=== PATIENT | female | born 1985 | race American Indian/Alaskan Native ===

== ENCOUNTER 2021-01-27 13:30 | Emergency (ER) | payer SELFPAY ==
[2021-01-27] MEDS ORDERED: LIDOCAINE (1%) 10 MG/1 ML VIAL 20 ML MDV INFILTRATI ONE (14:30)
--- NOTE | 2021-01-27 14:32 | Emergency Department Report ---
ED General Adult HPI - General Chief complaint: Skin/Abscess/Foreign Body Stated complaint: ABSCESS UNDER THE LEFT ARM Time Seen by Provider: 01/27/21 14:29 Source: patient Mode of arrival: Ambulatory Limitations: No Limitations - History of Present Illness Initial comments: 35 yo AA F pt presents with complaints of left axillary abscess x 4 days. She d enies hx of recurrent abscesses or HS. No fever/chills/sweats or difficulty moving her arm per pt. She rates her pain as a 10/10 in severity. Pt also reports she is newly and estimates she is about 5 weeks/ - Related Data Previous Rx's Medication Instructions Recorded Last Taken Type Acetaminophen [Non-Aspirin Extra 1,000 mg PO Q6H PRN #30 tablet 01/27/21 Unknown Rx Strength] Clindamycin [Clindamycin CAP] 300 mg PO Q6H 28 Days #40 capsule 01/27/21 Unknown Rx Mupirocin [Bactroban 2% OINT] 1 applic TP TID 10 Days #1 tube 01/27/21 Unknown Rx Allergies Allergy/AdvReac Type Severity Reaction Status Date / Time No Known Allergies Allergy Unverified 02/01/20 12:45 ED Review of Systems ROS: Stated complaint: ABSCESS UNDER THE LEFT ARM Other details as noted in HPI ED Past Medical Hx - Past Medical History Previous Medical History?: No - Surgical History Past Surgical History?: Yes Additional Surgical History: C section - Social History Smoking Status: Never Smoker Substance Use Type: None - Medications Home Medications: Home Medications Medication Instructions Recorded Confirmed Last Taken Type Acetaminophen [Non-Aspirin Extra 1,000 mg PO Q6H PRN #30 tablet 01/27/21 Unknown Rx Strength] Clindamycin [Clindamycin CAP] 300 mg PO Q6H 28 Days #40 capsule 01/27/21 Unknown Rx Mupirocin [Bactroban 2% OINT] 1 applic TP TID 10 Days #1 tube 01/27/21 Unknown Rx ED Physical Exam - General Limitations: No Limitations ED Course Vital Signs 01/27/21 14:31 Temperature 98.3 F Pulse Rate 80 Respiratory 20 Rate Blood Pressure 116/61 O2 Sat by Pulse 100 Oximetry - I & D Left Arm Type of Procedure: Simple Site: left axilla Blade Size: 11 I & D Procedure: betadine prep, gauze wick placed Progress: Minimal bleeding occurred. 10 cc of lidocaine 1% without epi used. Moderate purulent drainage obtained. Sample sent to lab for culture patient tolerated procedure well without any immediate complications ED Medical Decision Making - Medical Decision Making 35 yo AA F pt presents with complaints of left axillary abscess x 4 days. She denies hx of recurrent abscesses or HS. No fever/chills/sweats or difficulty moving her arm per pt. She rates her pain as a 10/10 in severity. Pt also reports she is newly and estimates she is about 5 weeks Incision and drainage performed successfully without any immediate complications. Discussed wound care and strict return precautions in detail with patient who verbalizes understanding. Patient to follow-up with her INTERVENTION ANALYST concerning her new . Patient to return to ED in 2 days for packing removal Critical care attestation.: If time is entered above; I have spent that time in minutes in the direct care of this critically ill patient, excluding procedure time. ED Disposition Clinical Impression: Abscess of axillary fold Disposition: DC-01 TO HOME OR SELFCARE Is pt being admited?: No Condition: Stable Instructions: Incision and Drainage, Care After Prescriptions: Mupirocin [Bactroban 2% OINT] 1 applic TP TID 10 Days #1 tube Clindamycin [Clindamycin CAP] 300 mg PO Q6H 28 Days #40 capsule Acetaminophen [Non-Aspirin Extra Strength] 1,000 mg PO Q6H PRN #30 tablet PRN Reason: pain Referrals: PRIMARY CARE,MD [Primary Care Provider] - 2-3 Days Forms: Work/School Release Form(ED)
[2021-01-27 14:35] VITALS: BP 116/61
== END 2021-01-27 15:45 | disposition home or self-care (01) ==
LOC: ED 13:30
DX: L02.412 Cutaneous abscess of left axilla (principal); Z98.890 Other specified postprocedural states
CPT/HCPCS: 87076; 87116; 87186; 99283

== ENCOUNTER 2021-07-20 12:30 | Emergency (ER) | payer SELFPAY ==
[2021-07-20 12:55] VITALS: BP 116/63
--- NOTE | 2021-07-20 13:12 | Emergency Department Report ---
ED ENT HPI - General Chief complaint: Dental/Oral Stated complaint: SWOLLEN FACE (L) Time Seen by Provider: 07/20/21 12:57 Source: patient Mode of arrival: Ambulatory Limitations: No Limitations - History of Present Illness Initial comments: 35-year-old female presents to the ER today with complaints of dental pain to left lower jaw and left jaw swelling. She states that symptoms started gradually yesterday and this morning when she woke up she noticed increased swelling to left lower jaw. She does admits that she has 2 bad teeth in that left lower jaw and she has never been to the dentist since he was a teenager because she is terrified a dentist. She states that she has been taking Goody powder without much relief. She reports no trismus, drooling, difficulty swallowing or any difficulty breathing. She reports no fever or chills. MD complaint: tooth pain, other (left jaw swelling) -: Gradual, days(s) - Related Data Previous Rx's Medication Instructions Recorded Last Taken Type Acetaminophen [Non-Aspirin Extra 1,000 mg PO Q6H PRN #30 tablet 01/27/21 Unknown Rx Strength] Mupirocin [Bactroban 2% OINT] 1 applic TP TID 10 Days #1 tube 01/27/21 Unknown Rx Acetaminophen/Codeine [Tylenol 1 tab PO Q4HR PRN #12 tablet 07/20/21 Unknown Rx /Codeine # 3 tab] Clindamycin [Clindamycin CAP] 300 mg PO Q6H 28 Days #40 capsule 07/20/21 Unknown Rx Ibuprofen [Motrin] 800 mg PO Q8HR PRN #30 tablet 07/20/21 Unknown Rx Allergies Allergy/AdvReac Type Severity Reaction Status Date / Time No Known Allergies Allergy Unverified 02/01/20 12:45 ED Dental HPI - General Chief complaint: Dental/Oral Stated complaint: SWOLLEN FACE (L) Time Seen by Provider: 07/20/21 12:57 Source: patient Mode of arrival: Ambulatory Limitations: No Limitations - Related Data Previous Rx's Medication Instructions Recorded Last Taken Type Acetaminophen [Non-Aspirin Extra 1,000 mg PO Q6H PRN #30 tablet 01/27/21 Unknown Rx Strength] Mupirocin [Bactroban 2% OINT] 1 applic TP TID 10 Days #1 tube 01/27/21 Unknown Rx Acetaminophen/Codeine [Tylenol 1 tab PO Q4HR PRN #12 tablet 07/20/21 Unknown Rx /Codeine # 3 tab] Clindamycin [Clindamycin CAP] 300 mg PO Q6H 28 Days #40 capsule 07/20/21 Unknown Rx Ibuprofen [Motrin] 800 mg PO Q8HR PRN #30 tablet 07/20/21 Unknown Rx Allergies Allergy/AdvReac Type Severity Reaction Status Date / Time No Known Allergies Allergy Unverified 02/01/20 12:45 ED Review of Systems ROS: Stated complaint: SWOLLEN FACE (L) Other details as noted in HPI Comment: All other systems reviewed and negative Constitutional: denies: chills, fever ENT: dental pain, other (left jaw swelling ) Respiratory: denies: cough, shortness of breath, SOB with exertion, SOB at rest, wheezing Cardiovascular: denies: chest pain, palpitations, dyspnea on exertion, edema, syncope, paroxysmal nocturnal dyspnea Gastrointestinal: denies: abdominal pain, nausea, diarrhea, constipation, hematemesis, melena, hematochezia Genitourinary: denies: urgency, dysuria, frequency, hematuria, discharge, abn ormal menses, dyspareunia Musculoskeletal: denies: back pain, joint swelling, arthralgia, myalgia Skin: denies: rash, lesions, change in color, change in hair/nails, pruritus Neurological: denies: headache, weakness, numbness, paresthesias, confusion, abnormal gait, vertigo Psychiatric: denies: anxiety, depression, auditory hallucinations, visual hallucinations, homicidal thoughts, suicidal thoughts Hematological/Lymphatic: denies: easy bleeding, easy bruising ED Past Medical Hx - Past Medical History Previous Medical History?: No - Surgical History Past Surgical History?: No Additional Surgical History: C section - Social History Smoking Status: Never Smoker Substance Use Type: None - Medications Home Medications: Home Medications Medication Instructions Recorded Confirmed Last Taken Type Acetaminophen [Non-Aspirin Extra 1,000 mg PO Q6H PRN #30 tablet 01/27/21 Unknown Rx Strength] Mupirocin [Bactroban 2% OINT] 1 applic TP TID 10 Days #1 tube 01/27/21 Unknown Rx Acetaminophen/Codeine [Tylenol 1 tab PO Q4HR PRN #12 tablet 07/20/21 Unknown Rx /Codeine # 3 tab] Clindamycin [Clindamycin CAP] 300 mg PO Q6H 28 Days #40 capsule 07/20/21 Unknown Rx Ibuprofen [Motrin] 800 mg PO Q8HR PRN #30 tablet 07/20/21 Unknown Rx ED Physical Exam - General Limitations: No Limitations General appearance: alert, in no apparent distress - Head Head exam: Present: atraumatic, normocephalic, normal inspection - Eye Eye exam: Present: normal appearance, PERRL, EOMI Pupils: Present: normal accommodation - ENT ENT exam: Present: mucous membranes moist, other (mild -mod swelling left lower jaw but no cellulitis ) - Expanded ENT Exam Expanded Mouth exam: Present: normal external inspection. Absent: drooling, trismus, muffled voice, tongue normal, tongue elevation 1 - Dental Tenderness (severe ttp with severe decay), Other (dental abscess noted) Throat exam: Positive: normal inspection - Neck Neck exam: Present: normal inspection, full ROM. Absent: lymphadenopathy - Respiratory Respiratory exam: Present: normal lung sounds bilaterally. Absent: respiratory distress, wheezes, rales, rhonchi - Cardiovascular Cardiovascular Exam: Present: regular rate, normal rhythm, normal heart sounds - Neurological Exam Neurological exam: Present: alert, oriented X3, CN II-XII intact, normal gait - Psychiatric Psychiatric exam: Present: normal affect, normal mood - Skin Skin exam: Present: intact ED Course Vital Signs 07/20/21 12:55 Temperature 98.1 F Pulse Rate 75 Respiratory 16 Rate Blood Pressure 116/63 [Right] O2 Sat by Pulse 98 Oximetry Critical care attestation.: If time is entered above; I have spent that time in minutes in the direct care of this critically ill patient, excluding procedure time. ED Disposition Clinical Impression: Dental abscess Disposition: 01 HOME / SELF CARE / HOMELESS Is pt being admited?: No Does the pt Need Aspirin: No Condition: Stable Instructions: Dental Abscess Additional Instructions: The clindamycin, ibuprofen and the Tylenol threes as prescribed. Take the clindamycin as prescribed to completion. It is very important that you follow- up with a dentist next week. Return to the ER if your symptoms changes or worsens in any way. Prescriptions: Clindamycin [Clindamycin CAP] 300 mg PO Q6H 28 Days #40 capsule Ibuprofen [Motrin] 800 mg PO Q8HR PRN #30 tablet PRN Reason: pain Acetaminophen/Codeine [Tylenol /Codeine # 3 tab] 1 tab PO Q4HR PRN #12 tablet PRN Reason: Pain Referrals: PRIMARY CARE, [Referring] - 3-5 Days Forms: Work/School Release Form(ED) Time of Disposition: 13:12
== END 2021-07-20 13:20 | disposition home or self-care (01) ==
LOC: ED 12:30
DX: K04.7 Periapical abscess without sinus (principal)
CPT/HCPCS: 99282